=== PATIENT | male | born 1965 | race Caucasian/White ===

== ENCOUNTER 2017-07-21 08:11 | Emergency (ER) | payer OTHER ==
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
== END 2017-07-21 09:53 | disposition home or self-care (01) ==
LOC: MW.ED 08:11
DX: S16.1XXA Strain of muscle, fascia and tendon at neck level, initial encounter (principal); V89.2XXA Person injured in unspecified motor-vehicle accident, traffic, initial encounter
CPT/HCPCS: 71010; 72125; 99284; G0390; 99283

== ENCOUNTER 2022-01-09 06:42 | Day surgery (SDC) | payer BC, OTHER ==
[~2022-01-09 06:42] MED LIST: Lactated Ringers 1,000 ML IV SCH
[2022-01-09] MEDS ORDERED: fentaNYL 100 MCG/2 ML SDV ONE (07:15)
[2022-01-09] MEDS ORDERED: Propofol 200 MG/20 ML SDV ONE ×2 (07:15→08:20)
[2022-01-09] MEDS ORDERED: Midazolam 1 MG/ML 2 ML SDV ONE (08:20)
== END 2022-01-09 09:15 | disposition home or self-care (01) ==
LOC: MW.SDS 06:42
PROVIDERS: ATTEND Surgery
DX: Z12.11 Encounter for screening for malignant neoplasm of colon (principal); K57.30 Diverticulosis of large intestine without perforation or abscess without bleeding; I10 Essential (primary) hypertension; N40.0 Benign prostatic hyperplasia without lower urinary tract symptoms; F41.9 Anxiety disorder, unspecified; G47.00 Insomnia, unspecified; Z98.890 Other specified postprocedural states; Z79.899 Other long term (current) drug therapy; Z80.0 Family history of malignant neoplasm of digestive organs
CPT/HCPCS: 45378; J2250; J2704; J3010; J7120; 00812